=== PATIENT | female | born 1995 | race Caucasian/White ===

== ENCOUNTER → 2020-09-17 | Outpatient (CLI) | payer OTHER ==
--- NOTE | 2020-09-17 13:25 | RAD ---
EXAM: Left breast sonogram. HISTORY: 25-year-old female presents with a palpable left breast lump. TECHNIQUE: Sonographic imaging of the left breast at the site of palpable concern was performed. COMPARISON: None. FINDINGS: There is no suspicious sonographic finding at the site of probable concern at the 5:00 posi tion 2 cm from the nipple. There is normal-appearing breast parenchymal dislocation. IMPRESSION: No suspicious sonographic correlate for a reported palpable lump within the left breast. Continued clinical follow-up of palpable abnormalities is recommended. Negative imaging should not pr eclude the decision to biopsy a palpable abnormality if there is clinical concern. BI-RADS Category 2 : Benign finding(s). Electronically signed by: Abigail Olmedo MD (09/17/2020 1:23 PM) [id number]
== END ==
LOC: MAMMO 13:00
PROVIDERS: ATTEND Obstetrics & Gynecology
DX: N63.20 Unspecified lump in the left breast, unspecified quadrant (principal)
CPT/HCPCS: 76641